=== PATIENT | male | born 1950 | race Caucasian/White ===

== ENCOUNTER 2018-10-22 11:59 | Emergency (ER) | payer OTHER ==
[~2018-10-22] VITALS: Ht 167.6 cm; Wt 80.7 kg
[~2018-10-22 11:59] MED LIST: ZOVIRAX800 MG
[2018-10-22] MEDS ORDERED: TAMS0.4C PO (12:18)
== END 2018-10-22 16:12 | disposition home or self-care (01) ==
LOC: ER 11:59
DX: M54.41 Lumbago with sciatica, right side (principal)

== ENCOUNTER 2022-03-21 13:07 | Emergency (ER) | payer OTHER ==
[~2022-03-21] VITALS: Ht 167.6 cm; Wt 79.4 kg
[~2022-03-21 13:07] MED LIST changes: +TAMS0.4C PO
[2022-03-21] MEDS ORDERED: ZESTRIL10 M1 PO (13:38)
[2022-03-21] MEDS ORDERED: ATORVASTATIN CA10 MG PO (13:39)
== END 2022-03-21 18:00 | disposition home or self-care (01) ==
LOC: ER 13:07
DX: R20.0 Anesthesia of skin (principal)

== ENCOUNTER 2022-08-18 10:36 | Emergency (ER) | payer OTHER ==
[~2022-08-18] VITALS: Ht 167.6 cm; Wt 80.7 kg
[~2022-08-18 10:36] MED LIST changes: +ATORVASTATIN CA10 MG PO; +ZESTRIL10 M1 PO
== END 2022-08-18 18:48 | disposition home or self-care (01) ==
LOC: ER 10:36
DX: K62.5 Hemorrhage of anus and rectum (principal); K57.90 Diverticulosis of intestine, part unspecified, without perforation or abscess without bleeding; N20.0 Calculus of kidney

== ENCOUNTER 2022-08-26 20:35 | Inpatient (IN) | payer OTHER ==
[~2022-08-26] VITALS: Ht 167.6 cm; Wt 80.7 kg
--- NOTE | 2022-08-26 21:37 | NUR ---
SE RECIBE PTE ALERTA Y ORIENTADO REFIERE SANGRADO ACTIVO EN LA TARDE, REFIERE QUE COMIO Y A LOS MINUTOS EVACUO SUSIE. SE ABHISHEK VITALES Y SE DEMIAN EN VINNY 12.
--- NOTE | 2022-08-26 22:25 | NUR ---
PACIENTE SE LE REALIZA ADMINISTRACION DE MEDICAMENTOS TY SE MANTIENE EN ESPERA DE REALIZAR CT. PACIENTE EN ESPERA DE ENTREGAR MUESTRA DE ORINA.
--- NOTE | 2022-08-27 07:47 | NUR ---
SE RECIBE PTE ALERTA Y ORIENTADA EN VINNY BAJA CON BARANDAS ELEVADAS POR SEGURIDAD. SE OBSERVA CON BUEN PATRON RESPIRATORIO, PEND RESULTADOS DE LABORATORIO. PEND CONS. DR CLIFTON. SE MANTIENE BAJO OBSERVACION POR CAMBIOS SIGNIFICATIVOS.
--- NOTE | 2022-08-27 14:22 | NUR ---
1:05PM: SE LLAMA A BANCO DE SUSIE Y MS FATEMEH REFIERE QUE PACIENTE NO TIENE RECORD PREVIO. SE COTEJA CON PACIENTE INFORMACION PERSONAL (NOMBRE COMPLETO Y ) SE CANALIZA PACIENTE X2 EN MANO DERECHA CON ANGIO # 20. AMBOS PATENTES, LIBRES DE EDEMA Y ERITEMA. SE ABHISHEK TUBOS PILOTOS PARA 2 UNIDADES PRBC'S EN HOLD. SE ISRAEL PERMISO DE TRANSFUCION. 2:15PM: MS BUNDY COTEJA ORDENES DE REQUISION. 2:24PM: SE NOTIFICA A MS GIGI PERSONAL DE BANCO DE SUSIE QUE SE DEMIAN REQUISION EN LABORATORIO PARA RECOGIDO.
[2022-08-30] MEDS ORDERED: ATORVASTATIN CA10 MG PO (12:44)
[2022-08-30] MEDS ORDERED: TAMS0.4C PO (12:44)
[2022-08-30] MEDS ORDERED: ZESTRIL10 M1 PO (12:44)
[2022-08-30] MEDS ORDERED: PROTONIX40 MG PO (12:44)
== END 2022-08-30 20:55 | disposition home or self-care (01) | DRG 379 ==
LOC: ER 20:35 → MEDI 08-27 13:31
PROVIDERS: ADMIT Internal Medicine; ATTEND Internal Medicine
PROC: BW21YZZ Computerized Tomography (CT Scan) of Abdomen and Pelvis using Other Contrast (ICD-10-PCS; principal; 2022-08-26)
DX: K57.31 Diverticulosis of large intestine without perforation or abscess with bleeding (principal); I10 Essential (primary) hypertension; N20.0 Calculus of kidney; N40.0 Benign prostatic hyperplasia without lower urinary tract symptoms; Z20.822 Contact with and (suspected) exposure to COVID-19

== ENCOUNTER 2022-10-14 16:03 | Emergency (ER) | payer OTHER ==
[~2022-10-14] VITALS: Ht 170.2 cm; Wt 77.6 kg
[~2022-10-14 16:03] MED LIST changes: +PROTONIX40 MG PO
[2022-10-14] MEDS ORDERED: PEPCID AC20 MG PO (19:19)
[2022-10-14] MEDS ORDERED: METRONIDAZOLE500 MG PO (19:19)
[2022-10-14] MEDS ORDERED: LEVSIN/SL0.125 MG SL (19:19)
[2022-10-14] MEDS ORDERED: CIPRO500 MG PO (19:19)
== END 2022-10-14 19:39 | disposition home or self-care (01) ==
LOC: ER 16:03
DX: K57.92 Diverticulitis of intestine, part unspecified, without perforation or abscess without bleeding (principal)

== ENCOUNTER 2022-12-15 10:12 | Emergency (ER) | payer OTHER ==
[~2022-12-15] VITALS: Ht 167.6 cm; Wt 77.1 kg
[~2022-12-15 10:12] MED LIST changes: +CIPRO500 MG PO; +LEVSIN/SL0.125 MG SL; +METRONIDAZOLE500 MG PO; +PEPCID AC20 MG PO
== END 2022-12-15 17:58 | disposition home or self-care (01) ==
LOC: ER 10:12
DX: K52.9 Noninfective gastroenteritis and colitis, unspecified (principal); K57.30 Diverticulosis of large intestine without perforation or abscess without bleeding; Z20.822 Contact with and (suspected) exposure to COVID-19

== ENCOUNTER 2023-10-18 19:53 | Emergency (ER) | payer OTHER ==
[~2023-10-18] VITALS: Ht 167.6 cm; Wt 79.4 kg
[2023-10-18] MEDS ORDERED: ZESTRIL20 MG PO (20:10)
[2023-10-18] MEDS ORDERED: FAMOTIDINE/PF 20 MG/2 ML VIAL IV PUSH STA (20:54)
[2023-10-18] MEDS ORDERED: CLINDAMYCIN PHOSPHATE 150 MG/ML (600mg) IV STA (20:55)
[2023-10-18 22:00] LABS: HEMATOCRIT 44.4 % (39.0-48.0); HEMOGLOBIN 14.9 g/dL (13-16.00); MEAN CELL VOLUME 94.7 fL (80.0-100.00); MEAN CORPUSCULAR HEMOGLOBIN 31.8 pg (27.00-32.0); MEAN CORPUSCULAR HGB CONC 33.6 g/dl (32.0-36.0); PLATELET COUNT 207 K/uL (150-450); RED BLOOD COUNT 4.69 M/uL (4.00-6.00); RED CELL DISTRIBUTION WIDTH 13.8 % (11.5-14.5)
== END 2023-10-18 22:45 | disposition home or self-care (01) ==
LOC: ER 19:53
PROVIDERS: General Practice
DX: K29.60 Other gastritis without bleeding (principal); L03.113 Cellulitis of right upper limb
CPT/HCPCS: 36415; 96365; 99283; J3490

== ENCOUNTER 2024-04-26 06:27 | Outpatient (CLI) | payer OTHER ==
[~2024-04-26 06:27] MED LIST changes: +ZESTRIL20 MG PO
[2024-04-26 07:30] LABS: PH,URINE 7.5 (5.0-8.0); URINE APPEARANCE Clear; URINE BILIRRUBIN Negative (NEGATIVE); URINE BLOOD Negative; URINE COLOR Yellow; URINE GLUCOSE Negative (NEGATIVE); URINE KETONE Negative (NEGATIVE); URINE LEUKOCYTE Negative; URINE NITRATE Negative; URINE PROTEIN Negative (NEGATIVE); URINE UROBILINOGEN 0.2 E.U./dl
[2024-04-26 07:33] LABS: URINE RBC 4.5 uL (0.0-20.8); URINE WBC 1.8 uL (0.0-23.2)
[2024-04-26 07:36] LABS: HEMATOCRIT 44.6 % (39.0-48.0); HEMOGLOBIN 15.2 g/dL (13-16.00); MEAN CELL VOLUME 93.3 fL (80.0-100.00); MEAN CORPUSCULAR HEMOGLOBIN 31.8 pg (27.00-32.0); MEAN CORPUSCULAR HGB CONC 34.1 g/dl (32.0-36.0); PLATELET COUNT 179 K/uL (150-450); RED BLOOD COUNT 4.78 M/uL (4.00-6.00); RED CELL DISTRIBUTION WIDTH 13.6 % (11.5-14.5)
[2024-04-26 08:04] LABS: URINE BACTERIA 2.5 uL (0.0-1933); URINE EPITHELIAL CELLS 0.4 uL (0.0-38.8)
[2024-04-26 08:10] LABS: INR 1.05; PARTIAL THROMBOPLASTIN TIME 31.6 SECONDS (22.0-34.0); PROTHROMBIN TIME 11.4 SECONDS (9.0-11.5)
[2024-04-26 08:12] LABS: ALBUMIN 3.9 gm/dL (3.4-5.0); BILIRUBIN TOTAL 0.56 mg/dL (0.3-1.2); CALCIUM 8.9 mg/dL (8.5-10.1); CREATININE SERUM 0.97 mg/dL (0.70-1.30); GFR 75.86; GLOBULINA 3.4 G/DL (2.4-3.5); POTASSIUM 4.28 mEq/L (3.5-5.1); TOTAL PROTEIN 7.3 gm/dL (6.4-8.2)
== END 2024-04-26 06:28 | disposition home or self-care (01) ==
LOC: RAD 06:27
PROVIDERS: ATTEND Urology
DX: D64.89 Other specified anemias (principal); E78.2 Mixed hyperlipidemia; D68.9 Coagulation defect, unspecified; N34.2 Other urethritis; J18.9 Pneumonia, unspecified organism

== ENCOUNTER 2024-12-06 07:22 | Emergency (ER) | payer OTHER ==
[~2024-12-06] VITALS: Ht 167.6 cm; Wt 79.4 kg
[2024-12-06] MEDS ORDERED: AMLODIPINE BESYL5 MG (07:42)
[2024-12-06] MEDS ORDERED: LOSARTAN POTASS50 MG (07:43)
[2024-12-06] MEDS ORDERED: FAMOtidine 10 MG/ML (4ML VIAL) IV ONE (08:30)
[2024-12-06] MEDS ORDERED: DIPHENHYDRAMINE HCL 50 MG/ML VIAL 1ML IV ONE (08:30)
[2024-12-06] MEDS ORDERED: BUTALB/ACETAMINOPHEN/CAFFEINE 1 TAB TABLET PO ONE ×2 (08:30→08:58)
[2024-12-06] MEDS ORDERED: 0.9 % SODIUM CHLORIDE 1,000 ML IV ONE (08:30)
[2024-12-06] MEDS ORDERED: DIPHENHYDRAMINE HCL 50 MG/ML VIAL 1ML ONE (08:57)
[2024-12-06] MEDS ORDERED: FAMOTIDINE/PF 20 MG/2 ML VIAL ONE (08:58)
[2024-12-06 09:34] LABS: HEMATOCRIT 47.2 % (39.0-48.0); HEMOGLOBIN 16.4 g/dL (13-16.00); MEAN CELL VOLUME 91.5 fL (80.0-100.00); MEAN CORPUSCULAR HEMOGLOBIN 31.9 pg (27.00-32.0); MEAN CORPUSCULAR HGB CONC 34.8 g/dl (32.0-36.0); RED BLOOD COUNT 5.16 M/uL (4.00-6.00); RED CELL DISTRIBUTION WIDTH 13.8 % (11.5-14.5)
[2024-12-06 09:35] LABS: PLATELET COUNT 140 K/uL (150-450)
[2024-12-06] MEDS ORDERED: PEPCID AC20 MG PO (10:26)
== END 2024-12-06 13:24 | disposition home or self-care (01) ==
LOC: ER 07:23
PROVIDERS: General Practice
DX: R53.81 Other malaise (principal); A90 Dengue fever [classical dengue]; Z20.822 Contact with and (suspected) exposure to COVID-19; I10 Essential (primary) hypertension; Z88.6 Allergy status to analgesic agent
CPT/HCPCS: 36415; 96365; 99282; J1200; J3490; J7030

== ENCOUNTER 2025-05-30 13:37 | Outpatient (CLI) | payer OTHER ==
[~2025-05-30 13:37] MED LIST changes: +AMLODIPINE BESYL5 MG; +LOSARTAN POTASS50 MG
== END 2025-05-30 13:44 | disposition home or self-care (01) ==
LOC: RAD 13:37
DX: M99.01 Segmental and somatic dysfunction of cervical region (principal); M99.02 Segmental and somatic dysfunction of thoracic region; M99.03 Segmental and somatic dysfunction of lumbar region; M54.2 Cervicalgia; M54.6 Pain in thoracic spine; M54.59 Other low back pain; M54.51 Vertebrogenic low back pain